=== PATIENT | female | born 1930 | race Caucasian/White ===

== ENCOUNTER 2018-07-01 17:05 | Inpatient (IN) | payer MEDICARE, OTHER ==
[~2018-07-01] VITALS: Ht 152.4 cm; Wt 73.5 kg
[~2018-07-01 17:05] MED LIST: AMLO10TA4 PO; ATEN-42 PO; ATOR20TA65 PO; INSU3INS6 SUBCUT; LISI2.5T47 PO
[2018-07-01] MEDS ORDERED: ONDANSETRON 4MG ODT PO STA (18:35)
[2018-07-01 19:16] LABS: BASOPHILS % 1.1 % (0.0-2.0); CHLORIDE 117 mEq/L (98-107); EOSINOPHILS % 5.8 % (0.0-5.0); HEMATOCRIT. 29.3 % (36.0-48.0); HEMOGLOBIN. 9.8 g/dL (12.0-16.0); LYMPHOCYTES % 23.9 % (20.0-50.0); MEAN CORPUSCULAR HEMOGLOBIN 30.7 pg (28.0-32.0); MEAN CORPUSCULAR VOLUME 92.1 fL (81.0-99.0); MEAN PLATELET VOLUME 7.7 fl (7.4-10.4); MONOCYTES % 6.8 % (2.0-8.0); NEUTROPHILS % 62.4 % (40.0-76.0); PLATELET 150 x1000/uL (130-400); RED BLOOD CELL COUNT 3.18 mill/uL (4.2-5.4); RED CELL DISTRIBUTION WIDTH 15.3 % (11.6-14.6)
[2018-07-01] MEDS ORDERED: INSULIN REGULAR (HUMULIN R) 300UNITS/3ML IV ONE (20:00)
[2018-07-01] MEDS ORDERED: DEXTROSE 50% WATER 50ML SYRINGE IV ONE (20:00)
[2018-07-01] MEDS ORDERED: ALBUTEROL (0.083%) 2.5MG/3ML NEB HHN ONE (20:00)
[2018-07-01] MEDS ORDERED: SODIUM BICARBONATE 8.4% 1 MEQ/ML 50ML SYR IV ONE (20:00)
[2018-07-01] MEDS ORDERED: CALCIUM GLUCONATE 1,000 MG in DEXT 5% WATER 100 ML IV ONE (20:00)
[2018-07-02] VITALS (16 sets, daily range): BP systolic 134–195; BP diastolic 55–80
[2018-07-02] MEDS ORDERED: LOSA25TA26 MT (00:24)
[2018-07-02] MEDS ORDERED: TERA5CAP4 MT (00:24)
[2018-07-02] MEDS ORDERED: APIX5TAB MT (00:24)
[2018-07-02] MEDS ORDERED: DEXTROSE 50% WATER 50ML SYRINGE IV PRN (01:15)
[2018-07-02] MEDS ORDERED: SODIUM POLYSTYRENE SULFONATE 15 G/60 ML BOT PO NR ×2 (02:00→11:30)
[2018-07-02] MEDS ORDERED: DEXT 5%/0.45% NACL 1000ML 1,000 ML IV SCH (02:00)
[2018-07-02] MEDS ORDERED: AMLODIPINE 5MG TABLET PO SCH (02:00)
[2018-07-02] MEDS ORDERED: APIXABAN 5 MG TABLET PO SCH (02:00)
[2018-07-02] MEDS: SODIUM BICARBONATE 50 MEQ in DEXT 5%/0.45% NACL 1000ML 1,000 ML IV SCH ×3 (02:21→20:11)
[2018-07-02] MEDS: INSULIN LISPRO 100 UNITS/ML SUBCUT SCH ×4 (08:00→21:00)
[2018-07-02] MEDS: BLOOD SUGAR DIAGNOSTIC STRIP TEST SCH ×4 (08:00→21:00)
[2018-07-02] MEDS ORDERED: SODIUM POLYSTYRENE SULFONATE 15 G/60 ML BOT PO ONE (10:00)
[2018-07-02] MEDS: CITRIC ACID/SODIUM CITRATE SOLN 30ML UDC PO SCH ×3 (11:19→16:44)
[2018-07-02] MEDS ORDERED: CLONIDINE 0.1MG TABLET PO NR (11:30)
[2018-07-02] MEDS: AMLODIPINE 10MG TABLET PO SCH (13:18)
[2018-07-02] MEDS: ATORVASTATIN CALCIUM 20MG TABLET PO SCH (13:19)
[2018-07-02] MEDS ORDERED: DEXTROSE 50% WATER 50ML SYRINGE IV NR (14:45)
[2018-07-02] MEDS ORDERED: SODIUM BICARBONATE 8.4% 1 MEQ/ML 50ML SYR IV SCH (15:00)
[2018-07-02] MEDS ORDERED: INSULIN REGULAR (HUMULIN R) UD 100 UNITS/ML SYR IV SCH (16:00)
[2018-07-02 19:37] LABS: HEMOGLOBIN 9.3 g/dL (12.0-16.0); MEAN CORPUSCULAR HEMOGLOBIN 30.5 pg (28.0-32.0); MEAN CORPUSCULAR VOLUME 91.3 fL (81.0-99.0); PLATELET 158 x1000/uL (130-400); RED BLOOD CELL COUNT 3.06 mill/uL (4.2-5.4)
[2018-07-02 19:45] LABS: INR 1.1; PROTHROMBIN TIME 11.4 sec (9.6-11.0)
[2018-07-03] VITALS (10 sets, daily range): BP systolic 134–193; BP diastolic 60–88
[2018-07-03] MEDS: CLONIDINE 0.1MG TABLET PO PRN ×3 (06:16→15:25)
[2018-07-03 06:52] LABS: EOSINOPHILS % 9.7 % (0.0-5.0); HEMATOCRIT. 27.2 % (36.0-48.0); HEMOGLOBIN. 9.1 g/dL (12.0-16.0); LYMPHOCYTES % 24.7 % (20.0-50.0); MEAN CORPUSCULAR HEMOGLOBIN 30.5 pg (28.0-32.0); MEAN CORPUSCULAR VOLUME 91.5 fL (81.0-99.0); MONOCYTES % 7.8 % (2.0-8.0); NEUTROPHILS % 56.8 % (40.0-76.0); PLATELET 139 x1000/uL (130-400); RED BLOOD CELL COUNT 2.98 mill/uL (4.2-5.4)
[2018-07-03 06:53] LABS: CLARITY URINE CLEAR (CLEAR); COLOR URINE YELLOW (YELLOW); KETONES URINE NEGATIVE (NEGATIVE); LEUKOCYTE ESTERASE URINE NEGATIVE (NEGATIVE); NITRITE URINE NEGATIVE (NEGATIVE); OCCULT BLOOD URINE TRACE (NEGATIVE); PROTEIN URINE 3+ (NEGATIVE); SPECIFIC GRAVITY URINE 1.013 (1.005-1.030); UROBILINOGEN URINE 0.2 E.U./dL (0.2-1.0)
[2018-07-03] MEDS: INSULIN LISPRO 100 UNITS/ML SUBCUT SCH ×4 (07:30→21:00)
[2018-07-03] MEDS: BLOOD SUGAR DIAGNOSTIC STRIP TEST SCH ×4 (07:30→21:16)
[2018-07-03 08:18] LABS: PHOSPHORUS 4.2 mg/dL (2.5-4.9)
[2018-07-03 08:22] LABS: T4 FREE 1.05 ng/dL (0.76-1.46)
[2018-07-03] MEDS: CITRIC ACID/SODIUM CITRATE SOLN 30ML UDC PO SCH ×3 (08:41→17:00)
[2018-07-03] MEDS: AMLODIPINE 10MG TABLET PO SCH (08:41)
[2018-07-03] MEDS: ATORVASTATIN CALCIUM 20MG TABLET PO SCH (08:41)
[2018-07-03] MEDS: SODIUM BICARBONATE 50 MEQ in DEXT 5%/0.45% NACL 1000ML 1,000 ML IV SCH (10:33)
[2018-07-03] MEDS: NITROGLYCERIN OINT 1GM/INCH UDPKT TD SCH ×3 (12:38→21:15)
[2018-07-03] MEDS ORDERED: HYDRALAZINE 20MG/ML VIAL IV PRN (17:30)
[2018-07-03] MEDS ORDERED: ATORVASTATIN CALCIUM 20MG TABLET PO SCH (21:00)
[2018-07-03] MEDS: HYDRALAZINE HCL 50MG TABLET PO SCH (22:00)
[2018-07-04] VITALS (9 sets, daily range): BP systolic 148–207; BP diastolic 57–84
[2018-07-04] MEDS: HYDRALAZINE HCL 50MG TABLET PO SCH (05:35)
[2018-07-04] MEDS ORDERED: CLONIDINE 0.1MG TABLET PO PRN (05:45)
[2018-07-04] MEDS: SODIUM BICARBONATE 50 MEQ in DEXT 5%/0.45% NACL 1000ML 1,000 ML IV SCH (05:52)
[2018-07-04] MEDS: NITROGLYCERIN OINT 1GM/INCH UDPKT TD SCH ×2 (05:53→13:31)
[2018-07-04 07:12] LABS: BASOPHILS % 1.4 % (0.0-2.0); EOSINOPHILS % 10.9 % (0.0-5.0); HEMATOCRIT. 26.4 % (36.0-48.0); HEMOGLOBIN. 9.1 g/dL (12.0-16.0); LYMPHOCYTES % 27.8 % (20.0-50.0); MEAN CORPUSCULAR HEMOGLOBIN 31.1 pg (28.0-32.0); MEAN CORPUSCULAR VOLUME 90.3 fL (81.0-99.0); MEAN PLATELET VOLUME 8.1 fl (7.4-10.4); MONOCYTES % 7.2 % (2.0-8.0); NEUTROPHILS % 52.7 % (40.0-76.0); PLATELET 146 x1000/uL (130-400); RED BLOOD CELL COUNT 2.92 mill/uL (4.2-5.4); RED CELL DISTRIBUTION WIDTH 14.6 % (11.6-14.6)
[2018-07-04] MEDS: INSULIN LISPRO 100 UNITS/ML SUBCUT SCH ×2 (07:30→12:30)
[2018-07-04] MEDS: BLOOD SUGAR DIAGNOSTIC STRIP TEST SCH ×2 (07:39→12:58)
[2018-07-04] MEDS: AMLODIPINE 10MG TABLET PO SCH (08:20)
[2018-07-04] MEDS: CITRIC ACID/SODIUM CITRATE SOLN 30ML UDC PO SCH ×2 (08:26→14:15)
== END 2018-07-04 18:30 | disposition home or self-care (01) | DRG 682 ==
LOC: ER 17:05 → 5EST 21:13 → EDBEDREQSVC 21:16 → EDBEDREQTM 21:16 → EDBEDREQ 21:16 → ENRESERV 22:16
PROVIDERS: ADMIT Internal Medicine; ATTEND Internal Medicine
DX: N17.9 Acute kidney failure, unspecified (principal); I50.33 Acute on chronic diastolic (congestive) heart failure; E87.2 Acidosis; J84.9 Interstitial pulmonary disease, unspecified; I13.0 Hypertensive heart and chronic kidney disease with heart failure and stage 1 through stage 4 chronic kidney disease, or unspecified chronic kidney disease; E87.5 Hyperkalemia; D63.1 Anemia in chronic kidney disease; E78.5 Hyperlipidemia, unspecified; I12.9 Hypertensive chronic kidney disease with stage 1 through stage 4 chronic kidney disease, or unspecified chronic kidney disease; R55 Syncope and collapse; N18.9 Chronic kidney disease, unspecified; E11.22 Type 2 diabetes mellitus with diabetic chronic kidney disease; D69.6 Thrombocytopenia, unspecified; E11.65 Type 2 diabetes mellitus with hyperglycemia; I48.0 Paroxysmal atrial fibrillation; R00.1 Bradycardia, unspecified; I25.10 Atherosclerotic heart disease of native coronary artery without angina pectoris; Z83.3 Family history of diabetes mellitus; Z91.81 History of falling; Z87.01 Personal history of pneumonia (recurrent); Z79.4 Long term (current) use of insulin; Z82.49 Family history of ischemic heart disease and other diseases of the circulatory system; Z79.01 Long term (current) use of anticoagulants; Z88.0 Allergy status to penicillin; Z88.5 Allergy status to narcotic agent; Z79.899 Other long term (current) drug therapy
CPT/HCPCS: 36415; 71045; 76770; 80048; 80061; 82962; 83036; 84100; 84132; 84439; 84443; 84484; 85027; 93005; 93306; 93880; 93970; 94640; 97161; 99291; J0610; J1815; J3490; J7060; J7611; Q0162

== ENCOUNTER 2019-01-02 19:27 | Inpatient (IN) | payer MEDICARE ==
[~2019-01-02] VITALS: Ht 149.9 cm; Wt 64.4 kg
[~2019-01-02 19:27] MED LIST changes: -ATEN-42 PO; -LISI2.5T47 PO; +TERA5CAP4 MT
[2019-01-02] MEDS ORDERED: ACETAMINOPHEN 325MG TABLET PO ONE (22:15)
[2019-01-02 22:22] LABS: BASOPHILS % 0.8 % (0.0-2.0); EOSINOPHILS % 1.1 % (0.0-5.0); HEMATOCRIT. 23.7 % (36.0-48.0); HEMOGLOBIN. 7.9 g/dL (12.0-16.0); LYMPHOCYTES % 9.6 % (20.0-50.0); MEAN CORPUSCULAR HEMOGLOBIN 28.4 pg (28.0-32.0); MEAN CORPUSCULAR VOLUME 85.2 fL (81.0-99.0); MEAN PLATELET VOLUME 7.9 fl (7.4-10.4); MONOCYTES % 7.1 % (2.0-8.0); NEUTROPHILS % 81.4 % (40.0-76.0); PLATELET 158 x1000/uL (130-400); RED BLOOD CELL COUNT 2.78 mill/uL (4.2-5.4); RED CELL DISTRIBUTION WIDTH 16.2 % (11.6-14.6)
[2019-01-02 22:27] LABS: CHLORIDE 110 mEq/L (98-107)
[2019-01-02] MEDS ORDERED: DILTIAZEM HCL 60MG TABLET PO ONE (23:45)
[2019-01-02] MEDS ORDERED: ASPIRIN 325MG EC TABLET PO ONE (23:45)
[2019-01-03 05:35] VITALS: BP 177/73
[2019-01-03] MEDS ORDERED: IMDUR PO (06:44)
[2019-01-03] MEDS ORDERED: FURO20TA4 PO (06:44)
[2019-01-03] MEDS ORDERED: ISOS10TA53 PO (06:44)
[2019-01-03] MEDS ORDERED: CLON0.2T PO (06:44)
[2019-01-03 08:00] VITALS: BP 150/54
[2019-01-03] MEDS ORDERED: DEXTROSE 50% WATER 50ML SYRINGE IV PRN (08:00)
[2019-01-03] MEDS ORDERED: IMDUR 60 MG PO SCH (09:00)
[2019-01-03] MEDS ORDERED: CLONIDINE 0.2MG TABLET PO SCH (10:00)
[2019-01-03] MEDS ORDERED: AMLODIPINE 10MG TABLET PO SCH (10:00)
[2019-01-03] MEDS: FUROSEMIDE 40MG/4ML VIAL IVP SCH (10:14)
[2019-01-03] MEDS: ISOSORBIDE MONONITRATE 60MG TABLET SR 24HR PO SCH (10:20)
[2019-01-03 12:00] VITALS: BP 124/53
[2019-01-03] MEDS: BLOOD SUGAR DIAGNOSTIC STRIP TEST SCH ×3 (12:20→20:47)
[2019-01-03] MEDS: IPRATROPIUM/ALBUTEROL 0.5-3(2.5)MG/3ML NEB HHN SCH ×3 (12:45→20:00)
[2019-01-03] MEDS: INSULIN LISPRO 100 UNITS/ML SUBCUT SCH ×3 (12:50→20:47)
[2019-01-03] MEDS: DILTIAZEM HCL 60MG TABLET PO SCH ×2 (15:15→22:00)
[2019-01-03 16:00] VITALS: BP_SYST 157; BP_DIAS 59; BP_DIAS 75
[2019-01-03] MEDS ORDERED: [UNRECOGNIZED DRUG - OTHER] SUBCUT SCH (17:00)
[2019-01-03] MEDS ORDERED: INSULIN GLARGINE HUM REC ANLOG 5 UNIT SUBCUT SCH (17:00)
[2019-01-03 17:24] LABS: CHLORIDE 111 mEq/L (98-107)
[2019-01-03 17:37] LABS: BASOPHILS % 0.9 % (0.0-2.0); EOSINOPHILS % 0.9 % (0.0-5.0); HEMATOCRIT. 24.5 % (36.0-48.0); HEMOGLOBIN. 7.9 g/dL (12.0-16.0); LYMPHOCYTES % 12.1 % (20.0-50.0); MEAN CORPUSCULAR HEMOGLOBIN 28.2 pg (28.0-32.0); MEAN CORPUSCULAR VOLUME 87.3 fL (81.0-99.0); MEAN PLATELET VOLUME 8.4 fl (7.4-10.4); MONOCYTES % 8.1 % (2.0-8.0); PLATELET 151 x1000/uL (130-400); RED BLOOD CELL COUNT 2.81 mill/uL (4.2-5.4); RED CELL DISTRIBUTION WIDTH 16.5 % (11.6-14.6)
[2019-01-03] MEDS: ENOXAPARIN 30MG/0.3ML SYR SUBCUT SCH (18:30)
[2019-01-03] MEDS: ONDANSETRON HCL 4MG/2ML INJ IV PRN (19:24)
[2019-01-03 20:00] VITALS: BP 125/68
[2019-01-03] MEDS: ATORVASTATIN CALCIUM 20MG TABLET PO SCH (21:00)
[2019-01-03] MEDS: INSULIN GLARGINE UD 100 UNITS/ML SYR SUBCUT SCH (22:00)
[2019-01-04] VITALS (27 sets, daily range): BP systolic 118–250; BP diastolic 45–134
[2019-01-04] MEDS: ONDANSETRON HCL 4MG/2ML INJ IV PRN ×2 (01:28→07:06)
[2019-01-04] MEDS: DEXT 5%/0.45% NACL KCL 20MEQ/L 1,000 ML IV SCH ×2 (01:48→09:48)
[2019-01-04] MEDS: IPRATROPIUM/ALBUTEROL 0.5-3(2.5)MG/3ML NEB HHN SCH ×5 (04:00→16:00)
[2019-01-04] MEDS: DILTIAZEM HCL 60MG TABLET PO SCH (06:00)
[2019-01-04] MEDS: BLOOD SUGAR DIAGNOSTIC STRIP TEST SCH ×4 (07:06→21:35)
[2019-01-04] MEDS: INSULIN LISPRO 100 UNITS/ML SUBCUT SCH ×4 (07:50→21:00)
[2019-01-04] MEDS: ISOSORBIDE MONONITRATE 60MG TABLET SR 24HR PO SCH (09:00)
[2019-01-04] MEDS: FUROSEMIDE 40MG/4ML VIAL IVP SCH (09:48)
[2019-01-04] MEDS: ENOXAPARIN 30MG/0.3ML SYR SUBCUT SCH (09:49)
[2019-01-04] MEDS: CITRIC ACID/SODIUM CITRATE SOLN 15ML UDC PO SCH ×2 (13:00→17:00)
[2019-01-04] MEDS ORDERED: EPINEPHRINE 4 MG in DEXT 5% WATER 246 ML IV ONE (15:45)
[2019-01-04] MEDS ORDERED: VANCOMYCIN 1G PREMIX 200ML IV ONE (15:45)
[2019-01-04] MEDS ORDERED: NOREPINEPHRINE 4 MG in DEXT 5% WATER 246 ML IV ONE (15:45)
[2019-01-04] MEDS ORDERED: NORMAL SALINE 0.9% 10 ML SYR ONE (16:07)
[2019-01-04] MEDS ORDERED: BACITRACIN 15GM TUBE TOP ONE (16:07)
[2019-01-04] MEDS ORDERED: THROMBIN (BOVINE) 5000 UNITS/VIAL TOP ONE (16:08)
[2019-01-04] MEDS ORDERED: SODIUM CHLORIDE 0.9% 2,000 ML ONE (16:08)
[2019-01-04] MEDS ORDERED: BACITRACIN 50,000 UNITS/VIAL ONE (16:08)
[2019-01-04] MEDS ORDERED: BUPIVACAINE HCL/EPINEPHRINE 0.5%/0.0005 30ML ONE (16:08)
[2019-01-04] MEDS ORDERED: ALBUMIN HUMAN 25GM/100ML (25%) IV ONE (16:24)
[2019-01-04] MEDS ORDERED: SUCCINYLCHOLINE CHLORIDE 200MG/10ML IV ONE (16:27)
[2019-01-04] MEDS ORDERED: EPHEDRINE SULFATE 50MG/ML VIAL ONE (16:27)
[2019-01-04] MEDS ORDERED: CALCIUM CHLORIDE 1GM/10ML SYR IV ONE (16:28)
[2019-01-04] MEDS ORDERED: ETOMIDATE 2MG/ML 10ML VIAL IV ONE (16:28)
[2019-01-04 16:48] LABS: BASOPHILS % 0.9 % (0.0-2.0); EOSINOPHILS % 0.8 % (0.0-5.0); HEMATOCRIT. 23.2 % (36.0-48.0); HEMOGLOBIN. 7.6 g/dL (12.0-16.0); LYMPHOCYTES % 8.7 % (20.0-50.0); MEAN CORPUSCULAR HEMOGLOBIN 28.5 pg (28.0-32.0); MEAN CORPUSCULAR VOLUME 87.2 fL (81.0-99.0); MEAN PLATELET VOLUME 8.3 fl (7.4-10.4); MONOCYTES % 8.8 % (2.0-8.0); NEUTROPHILS % 80.8 % (40.0-76.0); PLATELET 155 x1000/uL (130-400); RED BLOOD CELL COUNT 2.66 mill/uL (4.2-5.4)
[2019-01-04 16:52] LABS: INR 1.2; PROTHROMBIN TIME 12.4 sec (9.6-11.0)
[2019-01-04 16:54] LABS: CHLORIDE 111 mEq/L (98-107)
[2019-01-04] MEDS ORDERED: SKIN ADHESIVE 0.7 GM EA TOP ONE (18:05)
[2019-01-04] MEDS ORDERED: SODIUM CHLORIDE 0.9% 500 ML IV PRN (18:15)
[2019-01-04] MEDS ORDERED: ONDANSETRON HCL 4MG/2ML INJ IV PRN (18:15)
[2019-01-04] MEDS ORDERED: FENTANYL CITRATE/PF 50MCG/ML 2ML VIAL ONE (18:18)
[2019-01-04] MEDS ORDERED: DEXT 5%/0.45% NACL 1000ML 1,000 ML IV SCH (18:30)
[2019-01-04] MEDS ORDERED: IPRATROPIUM/ALBUTEROL 0.5-3(2.5)MG/3ML NEB HHN PRN (18:30)
[2019-01-04 19:01] LABS: BG BASE EXCESS -13.6 mmol/L (-2.0-2.0); BG CARBOXYHEMOGLOBIN 0.6 % (0.5-1.5); BG DEOXYHEMOGLOBIN 6.1 % (0.0-5.0); BG FRACTION INSPIRED OXYGEN 60; BG HCO3 ACT 14.1 mmol/L (22.0-26.0); BG METHEMOGLOBIN 0.1 % (0.0-1.5); BG OXYGEN SATURATION 93.9 % (92.0-98.5); BG OXYHEMOGLOBIN 93.2 % (94.0-97.0); BG PCO2 40.3 mmHg (35.0-45.0); BG PH 7.161 (7.350-7.450); BG PO2 86.5 mmHg (75.0-100.0); BG SAMPLE SITE A-LINE; BG TOTAL HEMOGLOBIN 8.2 g/dL (12.0-18.0); BG VENT MODE MASK - SIMPLE
[2019-01-04] MEDS ORDERED: SODIUM BICARBONATE 8.4% 1 MEQ/ML 50ML SYR IV NR (19:15)
[2019-01-04] MEDS: HYDROMORPHONE HCL/PF 2MG/ML CPJ IV PRN ×2 (19:28→21:42)
[2019-01-04] MEDS: DEXT 5%/0.45% NACL 1000ML 1,000 ML IV SCH (20:07)
[2019-01-04] MEDS: ATORVASTATIN CALCIUM 20MG TABLET PO SCH (21:00)
[2019-01-04] MEDS: METOPROLOL TARTRATE 5MG/5ML VIAL IV PRN (22:49)
[2019-01-04] MEDS: INSULIN GLARGINE UD 100 UNITS/ML SYR SUBCUT SCH (23:00)
[2019-01-04 23:32] LABS: CLARITY URINE CLOUDY (CLEAR); COLOR URINE YELLOW (YELLOW); KETONES URINE NEGATIVE (NEGATIVE); LEUKOCYTE ESTERASE URINE NEGATIVE (NEGATIVE); NITRITE URINE NEGATIVE (NEGATIVE); OCCULT BLOOD URINE 2+ (NEGATIVE); PROTEIN URINE 3+ (NEGATIVE); SPECIFIC GRAVITY URINE 1.013 (1.005-1.030); UROBILINOGEN URINE 0.2 E.U./dL (0.2-1.0)
[2019-01-05] VITALS (109 sets, daily range): BP systolic 0–260; BP diastolic 0–117
[2019-01-05] MEDS ORDERED: IPRATROPIUM/ALBUTEROL 0.5-3(2.5)MG/3ML NEB HHN SCH
[2019-01-05] MEDS: IPRATROPIUM/ALBUTEROL 0.5-3(2.5)MG/3ML NEB HHN SCH ×6 (00:10→20:14)
[2019-01-05] MEDS: HYDROMORPHONE HCL/PF 2MG/ML CPJ IV PRN (00:41)
[2019-01-05] MEDS: SODIUM POLYSTYRENE SULFONATE 15 G/60 ML BOT PO SCH ×2 (01:00→01:06)
[2019-01-05] MEDS ORDERED: SODIUM POLYSTYRENE SULFONATE 15 G/60 ML BOT PR SCH (03:00)
[2019-01-05 05:28] LABS: HEMOGLOBIN. 9.6 g/dL (12.0-16.0); MEAN CORPUSCULAR HEMOGLOBIN 29.1 pg (28.0-32.0); MEAN CORPUSCULAR VOLUME 88.2 fL (81.0-99.0); MEAN PLATELET VOLUME 7.9 fl (7.4-10.4); PLATELET 200 x1000/uL (130-400); RED BLOOD CELL COUNT 3.29 mill/uL (4.2-5.4); RED CELL DISTRIBUTION WIDTH 16.3 % (11.6-14.6)
[2019-01-05 05:48] LABS: PHOSPHORUS 6.9 mg/dL (2.5-4.9)
[2019-01-05] MEDS ORDERED: DEXTROSE 50% WATER 50ML SYRINGE IV SCH (08:00)
[2019-01-05] MEDS ORDERED: SODIUM BICARBONATE 8.4% 1 MEQ/ML 50ML SYR IV SCH (08:00)
[2019-01-05] MEDS ORDERED: INSULIN REGULAR (HUMULIN R) UD 100 UNITS/ML SYR IV SCH (08:00)
[2019-01-05] MEDS: BLOOD SUGAR DIAGNOSTIC STRIP TEST SCH ×4 (08:03→20:42)
[2019-01-05] MEDS: INSULIN LISPRO 100 UNITS/ML SUBCUT SCH ×4 (08:04→20:42)
[2019-01-05 08:05] LABS: PLATELET ESTIMATE NORMAL
[2019-01-05] MEDS: CITRIC ACID/SODIUM CITRATE SOLN 15ML UDC PO SCH ×3 (08:17→18:04)
[2019-01-05] MEDS: DOCUSATE SODIUM 100MG CAPSULE PO SCH ×3 (08:17→18:04)
[2019-01-05] MEDS: AMLODIPINE 5MG TABLET PO SCH ×2 (08:18→21:35)
[2019-01-05] MEDS: METOPROLOL TARTRATE 5MG/5ML VIAL IV PRN (08:38)
[2019-01-05] MEDS: FUROSEMIDE 40MG/4ML VIAL IVP SCH (09:00)
[2019-01-05 09:07] LABS: BG BASE EXCESS -6.1 mmol/L (-2.0-2.0); BG CARBOXYHEMOGLOBIN 0.5 % (0.5-1.5); BG DEOXYHEMOGLOBIN 4.5 % (0.0-5.0); BG FRACTION INSPIRED OXYGEN 50; BG HCO3 ACT 21.5 mmol/L (22.0-26.0); BG METHEMOGLOBIN 0.4 % (0.0-1.5); BG OXYGEN SATURATION 95.5 % (92.0-98.5); BG OXYHEMOGLOBIN 94.6 % (94.0-97.0); BG PCO2 53.6 mmHg (35.0-45.0); BG PH 7.222 (7.350-7.450); BG PO2 84.2 mmHg (75.0-100.0); BG SAMPLE SITE A-LINE; BG TOTAL HEMOGLOBIN 9.1 g/dL (12.0-18.0); BG VENT MODE MASK - VENTI
[2019-01-05 10:33] LABS: BG BASE EXCESS -9.3 mmol/L (-2.0-2.0); BG CARBOXYHEMOGLOBIN 0.2 % (0.5-1.5); BG DEOXYHEMOGLOBIN 4.2 % (0.0-5.0); BG FRACTION INSPIRED OXYGEN 50; BG HCO3 ACT 18.1 mmol/L (22.0-26.0); BG METHEMOGLOBIN 0.3 % (0.0-1.5); BG OXYGEN SATURATION 95.8 % (92.0-98.5); BG OXYHEMOGLOBIN 95.3 % (94.0-97.0); BG PCO2 46.5 mmHg (35.0-45.0); BG PH 7.209 (7.350-7.450); BG PO2 88.5 mmHg (75.0-100.0); BG SAMPLE SITE A-LINE; BG TOTAL HEMOGLOBIN 9.8 g/dL (12.0-18.0); BG VENT MODE MASK - VENTI
[2019-01-05] MEDS ORDERED: FUROSEMIDE 100MG/10ML VIAL IVP NR (12:00)
[2019-01-05] MEDS: DEXT 5%/0.45% NACL 1000ML 1,000 ML IV SCH (18:05)
[2019-01-05] MEDS ORDERED: ACETAMINOPHEN 650MG/20.3ML UDC PO PRN (21:00)
[2019-01-05] MEDS: ATORVASTATIN CALCIUM 20MG TABLET PO SCH (21:35)
[2019-01-05] MEDS ORDERED: ACETAMINOPHEN 325MG TABLET PO PRN (21:45)
[2019-01-05] MEDS: INSULIN GLARGINE UD 100 UNITS/ML SYR SUBCUT SCH (22:00)
[2019-01-06] VITALS (80 sets, daily range): BP systolic 82–186; BP diastolic 32–90
[2019-01-06] MEDS: IPRATROPIUM/ALBUTEROL 0.5-3(2.5)MG/3ML NEB HHN SCH ×6 (00:25→20:24)
[2019-01-06 07:16] LABS: BASOPHILS % 0.7 % (0.0-2.0); EOSINOPHILS % 0.8 % (0.0-5.0); HEMATOCRIT. 26.2 % (36.0-48.0); HEMOGLOBIN. 8.7 g/dL (12.0-16.0); LYMPHOCYTES % 9.9 % (20.0-50.0); MEAN CORPUSCULAR HEMOGLOBIN 28.3 pg (28.0-32.0); MEAN CORPUSCULAR VOLUME 85.3 fL (81.0-99.0); MEAN PLATELET VOLUME 8.4 fl (7.4-10.4); MONOCYTES % 8.5 % (2.0-8.0); NEUTROPHILS % 80.1 % (40.0-76.0); PLATELET 154 x1000/uL (130-400); RED BLOOD CELL COUNT 3.08 mill/uL (4.2-5.4); RED CELL DISTRIBUTION WIDTH 15.9 % (11.6-14.6)
[2019-01-06] MEDS: BLOOD SUGAR DIAGNOSTIC STRIP TEST SCH ×4 (07:50→20:09)
[2019-01-06] MEDS: INSULIN LISPRO 100 UNITS/ML SUBCUT SCH ×4 (08:20→20:10)
[2019-01-06 08:29] LABS: BG BASE EXCESS -7.9 mmol/L (-2.0-2.0); BG CARBOXYHEMOGLOBIN 1.1 % (0.5-1.5); BG DEOXYHEMOGLOBIN 6.9 % (0.0-5.0); BG FRACTION INSPIRED OXYGEN 40; BG HCO3 ACT 18.1 mmol/L (22.0-26.0); BG METHEMOGLOBIN 0.1 % (0.0-1.5); BG OXYHEMOGLOBIN 91.9 % (94.0-97.0); BG PCO2 38.6 mmHg (35.0-45.0); BG PH 7.288 (7.350-7.450); BG PO2 70.3 mmHg (75.0-100.0); BG SAMPLE SITE RIGHT RADIAL; BG TOTAL HEMOGLOBIN 12.4 g/dL (12.0-18.0); BG VENT MODE NASAL CANNULA
[2019-01-06] MEDS: DOCUSATE SODIUM 100MG CAPSULE PO SCH ×2 (08:51→17:00)
[2019-01-06] MEDS: FUROSEMIDE 100MG/10ML VIAL IVP SCH (08:51)
[2019-01-06] MEDS: CITRIC ACID/SODIUM CITRATE SOLN 15ML UDC PO SCH ×3 (08:51→17:00)
[2019-01-06] MEDS: AMLODIPINE 5MG TABLET PO SCH ×2 (08:51→20:09)
[2019-01-06 10:35] LABS: PHOSPHORUS 5.6 mg/dL (2.5-4.9)
[2019-01-06] MEDS ORDERED: BISACODYL 10MG SUPP PR ONE (11:45)
[2019-01-06] MEDS ORDERED: MAGNESIUM 2 G PREMIX 50 ML IV NR (16:00)
[2019-01-06] MEDS: ATORVASTATIN CALCIUM 20MG TABLET PO SCH (20:09)
[2019-01-06] MEDS: INSULIN GLARGINE UD 100 UNITS/ML SYR SUBCUT SCH (22:00)
[2019-01-06] MEDS: METOPROLOL TARTRATE 5MG/5ML VIAL IV PRN (22:10)
[2019-01-07] VITALS (28 sets, daily range): BP systolic 144–180; BP diastolic 59–107
[2019-01-07] MEDS: IPRATROPIUM/ALBUTEROL 0.5-3(2.5)MG/3ML NEB HHN SCH ×6 (00:45→20:00)
[2019-01-07] MEDS: METOPROLOL TARTRATE 5MG/5ML VIAL IV PRN (00:49)
[2019-01-07 06:05] LABS: HEMOGLOBIN. 9.3 g/dL (12.0-16.0); MEAN CORPUSCULAR HEMOGLOBIN 28.3 pg (28.0-32.0); MEAN CORPUSCULAR VOLUME 85.5 fL (81.0-99.0); MEAN PLATELET VOLUME 7.8 fl (7.4-10.4); PLATELET 191 x1000/uL (130-400); RED BLOOD CELL COUNT 3.27 mill/uL (4.2-5.4); RED CELL DISTRIBUTION WIDTH 15.8 % (11.6-14.6)
[2019-01-07 06:23] LABS: PHOSPHORUS 5.6 mg/dL (2.5-4.9)
[2019-01-07 07:41] LABS: PLATELET ESTIMATE NORMAL
[2019-01-07] MEDS: BLOOD SUGAR DIAGNOSTIC STRIP TEST SCH ×4 (07:50→21:00)
[2019-01-07] MEDS: INSULIN LISPRO 100 UNITS/ML SUBCUT SCH ×3 (08:20→21:00)
[2019-01-07] MEDS: DOCUSATE SODIUM 100MG CAPSULE PO SCH ×2 (09:34→17:00)
[2019-01-07] MEDS: FOLIC ACID/VITAMIN B COMP W-C TABLET PO SCH (09:34)
[2019-01-07] MEDS: CITRIC ACID/SODIUM CITRATE SOLN 15ML UDC PO SCH ×5 (09:34→17:39)
[2019-01-07] MEDS: CALCIUM ACETATE 667MG CAPSULE PO SCH ×2 (09:35→17:33)
[2019-01-07] MEDS: AMLODIPINE 5MG TABLET PO SCH ×2 (09:35→21:11)
[2019-01-07] MEDS: FUROSEMIDE 100MG/10ML VIAL IVP SCH (09:38)
[2019-01-07] MEDS ORDERED: MORPHINE SULFATE 2 MG/ML CPJ (NOT FOR IM USE) IV PRN (10:45)
[2019-01-07] MEDS ORDERED: HYDROMORPHONE HCL/PF 2MG/ML CPJ IV PRN ×2 (10:45→23:45)
[2019-01-07] MEDS ORDERED: MORPHINE SULFATE 2 MG/ML CPJ (NOT FOR IM USE) IV SCH (10:45)
[2019-01-07] MEDS: ACETYLCYSTEINE 100MG/ML 10% VIAL 4ML INH SCH (12:04)
[2019-01-07] MEDS: ATORVASTATIN CALCIUM 20MG TABLET PO SCH (21:11)
[2019-01-07] MEDS: INSULIN GLARGINE UD 100 UNITS/ML SYR SUBCUT SCH (21:51)
[2019-01-08] VITALS: BP 175/64
[2019-01-08] MEDS: METOPROLOL TARTRATE 5MG/5ML VIAL IV PRN (00:43)
[2019-01-08] MEDS: IPRATROPIUM/ALBUTEROL 0.5-3(2.5)MG/3ML NEB HHN SCH ×6 (01:10→20:58)
[2019-01-08 04:00] VITALS: BP 139/59
[2019-01-08] MEDS: BLOOD SUGAR DIAGNOSTIC STRIP TEST SCH ×4 (05:33→20:44)
[2019-01-08] MEDS: INSULIN LISPRO 100 UNITS/ML SUBCUT SCH ×4 (05:33→20:44)
[2019-01-08] MEDS: CALCIUM ACETATE 667MG CAPSULE PO SCH ×3 (06:55→17:05)
[2019-01-08 08:00] VITALS: BP 153/59
[2019-01-08 08:28] LABS: BASOPHILS % 0.3 % (0.0-2.0); EOSINOPHILS % 1.5 % (0.0-5.0); HEMATOCRIT. 28.8 % (36.0-48.0); HEMOGLOBIN. 9.4 g/dL (12.0-16.0); LYMPHOCYTES % 7.9 % (20.0-50.0); MEAN CORPUSCULAR HEMOGLOBIN 27.9 pg (28.0-32.0); MEAN CORPUSCULAR VOLUME 85.6 fL (81.0-99.0); MEAN PLATELET VOLUME 7.5 fl (7.4-10.4); MONOCYTES % 6.4 % (2.0-8.0); NEUTROPHILS % 83.9 % (40.0-76.0); PLATELET 202 x1000/uL (130-400); RED BLOOD CELL COUNT 3.37 mill/uL (4.2-5.4); RED CELL DISTRIBUTION WIDTH 15.6 % (11.6-14.6)
[2019-01-08] MEDS: FOLIC ACID/VITAMIN B COMP W-C TABLET PO SCH (08:48)
[2019-01-08] MEDS: FUROSEMIDE 40MG/4ML VIAL IV SCH (08:48)
[2019-01-08] MEDS: AMLODIPINE 5MG TABLET PO SCH ×2 (08:48→20:44)
[2019-01-08] MEDS: DOCUSATE SODIUM 100MG CAPSULE PO SCH ×2 (08:49→17:00)
[2019-01-08] MEDS: CITRIC ACID/SODIUM CITRATE SOLN 15ML UDC PO SCH ×3 (08:49→17:00)
[2019-01-08] MEDS: ACETYLCYSTEINE 100MG/ML 10% VIAL 4ML INH SCH ×2 (09:14→17:08)
[2019-01-08] MEDS ORDERED: HYDROMORPHONE HCL/PF 2MG/ML CPJ IV SCH (10:00)
[2019-01-08 12:00] VITALS: BP 171/76
[2019-01-08 16:28] VITALS: BP 161/58
[2019-01-08] MEDS: METHYLPREDNISOLONE SOD SUCC 40 MG/ML VIAL IV SCH (17:05)
[2019-01-08 17:20] LABS: BG BASE EXCESS -2.7 mmol/L (-2.0-2.0); BG CARBOXYHEMOGLOBIN 0.2 % (0.5-1.5); BG DEOXYHEMOGLOBIN 3.1 % (0.0-5.0); BG FRACTION INSPIRED OXYGEN 100; BG HCO3 ACT 23.1 mmol/L (22.0-26.0); BG OXYGEN SATURATION 96.9 % (92.0-98.5); BG OXYHEMOGLOBIN 96.7 % (94.0-97.0); BG PCO2 44.5 mmHg (35.0-45.0); BG PH 7.333 (7.350-7.450); BG PO2 103.1 mmHg (75.0-100.0); BG SAMPLE SITE RIGHT RADIAL; BG TOTAL HEMOGLOBIN 9.8 g/dL (12.0-18.0); BG VENT MODE MASK - NRB
[2019-01-08 20:00] VITALS: BP 163/60
[2019-01-08] MEDS: ATORVASTATIN CALCIUM 20MG TABLET PO SCH (20:44)
[2019-01-08] MEDS: INSULIN GLARGINE UD 100 UNITS/ML SYR SUBCUT SCH (21:21)
[2019-01-09] VITALS: BP 170/63
[2019-01-09] MEDS: METHYLPREDNISOLONE SOD SUCC 40 MG/ML VIAL IV SCH ×4 (00:06→23:34)
[2019-01-09] MEDS: METOPROLOL TARTRATE 5MG/5ML VIAL IV PRN ×2 (00:22→13:34)
[2019-01-09] MEDS: ACETYLCYSTEINE 100MG/ML 10% VIAL 4ML INH SCH ×3 (00:23→15:55)
[2019-01-09 04:00] VITALS: BP 108/66
[2019-01-09] MEDS: IPRATROPIUM/ALBUTEROL 0.5-3(2.5)MG/3ML NEB HHN SCH ×6 (04:00→20:09)
[2019-01-09 05:57] LABS: HEMATOCRIT 29.9 % (36.0-48.0); HEMOGLOBIN 9.8 g/dL (12.0-16.0); MEAN CORPUSCULAR VOLUME 85.3 fL (81.0-99.0); PLATELET 197 x1000/uL (130-400); RED CELL DISTRIBUTION WIDTH 15.7 % (11.6-14.6)
[2019-01-09] MEDS: BLOOD SUGAR DIAGNOSTIC STRIP TEST SCH ×4 (06:14→20:43)
[2019-01-09 08:00] VITALS: BP 179/75
[2019-01-09] MEDS: CITRIC ACID/SODIUM CITRATE SOLN 15ML UDC PO SCH ×4 (08:06→17:00)
[2019-01-09] MEDS: DOCUSATE SODIUM 100MG CAPSULE PO SCH ×2 (08:06→18:02)
[2019-01-09] MEDS: FOLIC ACID/VITAMIN B COMP W-C TABLET PO SCH (08:06)
[2019-01-09] MEDS: CALCIUM ACETATE 667MG CAPSULE PO SCH ×3 (08:07→18:02)
[2019-01-09] MEDS: FUROSEMIDE 40MG/4ML VIAL IV SCH (08:07)
[2019-01-09] MEDS: AMLODIPINE 5MG TABLET PO SCH ×2 (08:07→21:04)
[2019-01-09] MEDS: INSULIN LISPRO 100 UNITS/ML SUBCUT SCH ×5 (08:09→21:05)
[2019-01-09] MEDS ORDERED: POTASSIUM CHLORIDE 20MEQ TABLET SR PO ONE (11:00)
[2019-01-09 12:00] VITALS: BP 196/80
[2019-01-09 14:44] LABS: BG BASE EXCESS -2.4 mmol/L (-2.0-2.0); BG CARBOXYHEMOGLOBIN 0.4 % (0.5-1.5); BG DEOXYHEMOGLOBIN 1.8 % (0.0-5.0); BG FRACTION INSPIRED OXYGEN 100; BG HCO3 ACT 23.2 mmol/L (22.0-26.0); BG METHEMOGLOBIN 0.1 % (0.0-1.5); BG OXYGEN SATURATION 98.2 % (92.0-98.5); BG OXYHEMOGLOBIN 97.7 % (94.0-97.0); BG PCO2 43.4 mmHg (35.0-45.0); BG PH 7.346 (7.350-7.450); BG PO2 136.9 mmHg (75.0-100.0); BG SAMPLE SITE LEFT RADIAL; BG TOTAL HEMOGLOBIN 11.9 g/dL (12.0-18.0); BG VENT MODE MASK - NRB
[2019-01-09 16:00] VITALS: BP 178/81
[2019-01-09] MEDS: SORBITOL 70% SOLN 30ML PO PRN (18:01)
[2019-01-09] MEDS: METOCLOPRAMIDE HCL 10MG/2ML VIAL IV SCH ×2 (18:01→23:34)
[2019-01-09] MEDS: CLONIDINE 0.1MG TABLET PO PRN (18:02)
[2019-01-09 20:00] VITALS: BP 140/86
[2019-01-09] MEDS: ATORVASTATIN CALCIUM 20MG TABLET PO SCH (21:04)
[2019-01-09] MEDS: INSULIN GLARGINE UD 100 UNITS/ML SYR SUBCUT SCH (21:05)
[2019-01-10] VITALS: BP 151/87
[2019-01-10 04:00] VITALS: BP 145/73
[2019-01-10] MEDS: IPRATROPIUM/ALBUTEROL 0.5-3(2.5)MG/3ML NEB HHN SCH ×6 (04:00→21:33)
[2019-01-10] MEDS: ACETYLCYSTEINE 100MG/ML 10% VIAL 4ML INH SCH ×4 (04:55→21:34)
[2019-01-10] MEDS: METOCLOPRAMIDE HCL 10MG/2ML VIAL IV SCH ×4 (05:36→23:57)
[2019-01-10] MEDS: BLOOD SUGAR DIAGNOSTIC STRIP TEST SCH ×4 (06:32→21:18)
[2019-01-10 07:21] LABS: CHLORIDE 106 mEq/L (98-107)
[2019-01-10] MEDS: INSULIN LISPRO 100 UNITS/ML SUBCUT SCH ×4 (07:40→21:39)
[2019-01-10 08:00] VITALS: BP 108/72
[2019-01-10] MEDS: CITRIC ACID/SODIUM CITRATE SOLN 15ML UDC PO SCH ×3 (09:00→17:00)
[2019-01-10] MEDS: AMLODIPINE 5MG TABLET PO SCH ×2 (09:00→21:38)
[2019-01-10] MEDS: SORBITOL 70% SOLN 30ML PO PRN (10:29)
[2019-01-10] MEDS: CALCIUM ACETATE 667MG CAPSULE PO SCH ×3 (10:29→17:38)
[2019-01-10] MEDS: METHYLPREDNISOLONE SOD SUCC 40 MG/ML VIAL IV SCH ×3 (10:29→23:57)
[2019-01-10] MEDS: FUROSEMIDE 40MG/4ML VIAL IV SCH (10:29)
[2019-01-10] MEDS: DOCUSATE SODIUM 100MG CAPSULE PO SCH ×2 (10:29→17:38)
[2019-01-10] MEDS: FOLIC ACID/VITAMIN B COMP W-C TABLET PO SCH (10:29)
[2019-01-10 12:00] VITALS: BP 145/59
[2019-01-10] MEDS ORDERED: SODIUM BICARBONATE 4% (2.4MEQ) 5ML VIAL IV ONE (13:39)
[2019-01-10 16:00] VITALS: BP 184/88
[2019-01-10 20:00] VITALS: BP 176/64
[2019-01-10] MEDS: ATORVASTATIN CALCIUM 20MG TABLET PO SCH (21:38)
[2019-01-11] VITALS: BP 156/93
[2019-01-11] MEDS: INSULIN GLARGINE UD 100 UNITS/ML SYR SUBCUT SCH ×2 (00:07→22:27)
[2019-01-11] MEDS: ACETYLCYSTEINE 100MG/ML 10% VIAL 4ML INH SCH ×3 (00:33→16:00)
[2019-01-11] MEDS: IPRATROPIUM/ALBUTEROL 0.5-3(2.5)MG/3ML NEB HHN SCH ×6 (01:03→20:56)
[2019-01-11 04:00] VITALS: BP 154/80
[2019-01-11] MEDS: BLOOD SUGAR DIAGNOSTIC STRIP TEST SCH ×4 (06:02→21:02)
[2019-01-11] MEDS: METOCLOPRAMIDE HCL 10MG/2ML VIAL IV SCH ×3 (06:02→17:24)
[2019-01-11] MEDS: INSULIN LISPRO 100 UNITS/ML SUBCUT SCH ×4 (06:14→21:18)
[2019-01-11 07:34] LABS: HEMOGLOBIN 9.8 g/dL (12.0-16.0); MEAN CORPUSCULAR HEMOGLOBIN 27.5 pg (28.0-32.0); MEAN CORPUSCULAR VOLUME 84.6 fL (81.0-99.0); PLATELET 261 x1000/uL (130-400); RED BLOOD CELL COUNT 3.54 mill/uL (4.2-5.4); RED CELL DISTRIBUTION WIDTH 15.6 % (11.6-14.6)
[2019-01-11 08:00] VITALS: BP 181/72
[2019-01-11] MEDS: CITRIC ACID/SODIUM CITRATE SOLN 15ML UDC PO SCH ×3 (09:00→17:00)
[2019-01-11] MEDS: FUROSEMIDE 40MG/4ML VIAL IV SCH (09:06)
[2019-01-11] MEDS: FOLIC ACID/VITAMIN B COMP W-C TABLET PO SCH (09:06)
[2019-01-11] MEDS: METHYLPREDNISOLONE SOD SUCC 40 MG/ML VIAL IV SCH ×2 (09:06→17:25)
[2019-01-11] MEDS: AMLODIPINE 5MG TABLET PO SCH ×2 (09:06→21:00)
[2019-01-11] MEDS: DOCUSATE SODIUM 100MG CAPSULE PO SCH ×2 (09:06→17:24)
[2019-01-11] MEDS: SORBITOL 70% SOLN 30ML PO PRN (09:06)
[2019-01-11] MEDS: CALCIUM ACETATE 667MG CAPSULE PO SCH ×3 (09:06→17:24)
[2019-01-11 11:54] LABS: BG BASE EXCESS 0.9 mmol/L (-2.0-2.0); BG CARBOXYHEMOGLOBIN 0.7 % (0.5-1.5); BG DEOXYHEMOGLOBIN 4.7 % (0.0-5.0); BG FRACTION INSPIRED OXYGEN 60; BG HCO3 ACT 24.7 mmol/L (22.0-26.0); BG METHEMOGLOBIN 0.4 % (0.0-1.5); BG OXYGEN SATURATION 95.2 % (92.0-98.5); BG OXYHEMOGLOBIN 94.2 % (94.0-97.0); BG PCO2 36.3 mmHg (35.0-45.0); BG PO2 76.2 mmHg (75.0-100.0); BG SAMPLE SITE RIGHT RADIAL; BG TOTAL HEMOGLOBIN 10.9 g/dL (12.0-18.0); BG VENT MODE NASAL CANNULA
[2019-01-11 12:00] VITALS: BP 176/76
[2019-01-11] MEDS ORDERED: BISACODYL 10MG SUPP PR PRN (12:30)
[2019-01-11] MEDS: CLONIDINE 0.1MG TABLET PO PRN (13:48)
[2019-01-11 16:00] VITALS: BP 171/82
[2019-01-11] MEDS: METOPROLOL TARTRATE 5MG/5ML VIAL IV PRN (17:25)
[2019-01-11 20:00] VITALS: BP 108/81
[2019-01-11] MEDS: ATORVASTATIN CALCIUM 20MG TABLET PO SCH (21:18)
[2019-01-11] MEDS: LORAZEPAM 0.5MG TABLET PO PRN (22:27)
[2019-01-12] VITALS: BP 112/80
[2019-01-12] MEDS: METOCLOPRAMIDE HCL 10MG/2ML VIAL IV SCH ×4 (00:22→18:20)
[2019-01-12] MEDS: METHYLPREDNISOLONE SOD SUCC 40 MG/ML VIAL IV SCH ×3 (00:24→18:20)
[2019-01-12 04:00] VITALS: BP_SYST 107; BP_SYST 129; BP_DIAS 63; BP_DIAS 80
[2019-01-12] MEDS: IPRATROPIUM/ALBUTEROL 0.5-3(2.5)MG/3ML NEB HHN SCH ×7 (04:00→22:05)
[2019-01-12] MEDS: INSULIN LISPRO 100 UNITS/ML SUBCUT SCH ×5 (06:19→21:40)
[2019-01-12] MEDS: BLOOD SUGAR DIAGNOSTIC STRIP TEST SCH ×4 (06:24→21:30)
[2019-01-12 07:21] LABS: HEMATOCRIT 27.9 % (36.0-48.0); HEMOGLOBIN 9.1 g/dL (12.0-16.0); MEAN CORPUSCULAR HEMOGLOBIN 27.6 pg (28.0-32.0); MEAN CORPUSCULAR VOLUME 84.8 fL (81.0-99.0); PLATELET 233 x1000/uL (130-400); RED BLOOD CELL COUNT 3.29 mill/uL (4.2-5.4); RED CELL DISTRIBUTION WIDTH 15.4 % (11.6-14.6)
[2019-01-12 08:00] VITALS: BP 164/71
[2019-01-12] MEDS: FOLIC ACID/VITAMIN B COMP W-C TABLET PO SCH (08:23)
[2019-01-12] MEDS: DOCUSATE SODIUM 100MG CAPSULE PO SCH ×2 (08:23→18:20)
[2019-01-12] MEDS: CALCIUM ACETATE 667MG CAPSULE PO SCH ×3 (08:23→18:20)
[2019-01-12] MEDS: AMLODIPINE 5MG TABLET PO SCH (08:23)
[2019-01-12] MEDS: FUROSEMIDE 40MG/4ML VIAL IV SCH (08:24)
[2019-01-12] MEDS: ACETYLCYSTEINE 100MG/ML 10% VIAL 4ML INH SCH ×2 (08:50→19:00)
[2019-01-12 12:00] VITALS: BP 198/84
[2019-01-12 16:00] VITALS: BP 164/83
[2019-01-12 20:00] VITALS: BP 169/82
[2019-01-12] MEDS: ATORVASTATIN CALCIUM 20MG TABLET PO SCH (21:34)
[2019-01-12] MEDS: DILTIAZEM HCL 30MG TABLET PO SCH (21:34)
[2019-01-12] MEDS: LORAZEPAM 0.5MG TABLET PO PRN (21:35)
[2019-01-12] MEDS: INSULIN GLARGINE UD 100 UNITS/ML SYR SUBCUT SCH (22:43)
[2019-01-13] VITALS: BP 140/70
[2019-01-13] MEDS: IPRATROPIUM/ALBUTEROL 0.5-3(2.5)MG/3ML NEB HHN SCH ×6 (00:26→20:00)
[2019-01-13] MEDS: METOCLOPRAMIDE HCL 10MG/2ML VIAL IV SCH ×4 (00:46→18:14)
[2019-01-13 04:00] VITALS: BP 161/83
[2019-01-13] MEDS: DILTIAZEM HCL 30MG TABLET PO SCH ×3 (05:44→21:38)
[2019-01-13] MEDS: BLOOD SUGAR DIAGNOSTIC STRIP TEST SCH ×4 (05:45→21:40)
[2019-01-13] MEDS: INSULIN LISPRO 100 UNITS/ML SUBCUT SCH ×4 (06:38→21:36)
[2019-01-13] MEDS: CALCIUM ACETATE 667MG CAPSULE PO SCH ×3 (06:42→18:00)
[2019-01-13 08:00] VITALS: BP 172/76
[2019-01-13 08:17] LABS: HEMATOCRIT. 31.1 % (36.0-48.0); HEMOGLOBIN. 10.2 g/dL (12.0-16.0); MEAN CORPUSCULAR HEMOGLOBIN 27.7 pg (28.0-32.0); MEAN CORPUSCULAR VOLUME 84.5 fL (81.0-99.0); MEAN PLATELET VOLUME 8.1 fl (7.4-10.4); PLATELET 273 x1000/uL (130-400); RED BLOOD CELL COUNT 3.68 mill/uL (4.2-5.4); RED CELL DISTRIBUTION WIDTH 15.8 % (11.6-14.6)
[2019-01-13] MEDS: METHYLPREDNISOLONE SOD SUCC 40 MG/ML VIAL IV SCH ×2 (08:59→18:01)
[2019-01-13] MEDS: DOCUSATE SODIUM 100MG CAPSULE PO SCH ×2 (08:59→18:00)
[2019-01-13] MEDS: FUROSEMIDE 40MG/4ML VIAL IV SCH (08:59)
[2019-01-13] MEDS: FOLIC ACID/VITAMIN B COMP W-C TABLET PO SCH (09:00)
[2019-01-13 10:21] LABS: PLATELET ESTIMATE NORMAL
[2019-01-13 12:00] VITALS: BP 181/88
[2019-01-13] MEDS: CLONIDINE 0.1MG TABLET PO PRN ×2 (13:20→18:00)
[2019-01-13 16:00] VITALS: BP 169/78
[2019-01-13 20:00] VITALS: BP 119/74
[2019-01-13] MEDS: INSULIN GLARGINE UD 100 UNITS/ML SYR SUBCUT SCH (21:36)
[2019-01-13] MEDS: ATORVASTATIN CALCIUM 20MG TABLET PO SCH (21:37)
[2019-01-14] VITALS: BP 122/80
[2019-01-14] MEDS: IPRATROPIUM/ALBUTEROL 0.5-3(2.5)MG/3ML NEB HHN SCH ×2 (00:47→04:02)
[2019-01-14] MEDS: METOCLOPRAMIDE HCL 10MG/2ML VIAL IV SCH ×2 (02:45→06:52)
[2019-01-14 04:00] VITALS: BP 145/80
[2019-01-14] MEDS: DILTIAZEM HCL 30MG TABLET PO SCH ×2 (05:53→12:54)
[2019-01-14] MEDS: BLOOD SUGAR DIAGNOSTIC STRIP TEST SCH ×2 (06:42→12:59)
[2019-01-14] MEDS: INSULIN LISPRO 100 UNITS/ML SUBCUT SCH ×2 (06:50→12:59)
[2019-01-14 08:29] VITALS: BP_SYST 139; BP_DIAS 40; BP_DIAS 79
[2019-01-14] MEDS: FOLIC ACID/VITAMIN B COMP W-C TABLET PO SCH (08:49)
[2019-01-14] MEDS: CALCIUM ACETATE 667MG CAPSULE PO SCH (08:49)
[2019-01-14] MEDS: FUROSEMIDE 40MG/4ML VIAL IV SCH (08:49)
[2019-01-14] MEDS: DOCUSATE SODIUM 100MG CAPSULE PO SCH (08:49)
[2019-01-14] MEDS: METHYLPREDNISOLONE SOD SUCC 40 MG/ML VIAL IV SCH (08:52)
[2019-01-14] MEDS ORDERED: ISOS60TA4 MT (09:56)
[2019-01-14 10:20] VITALS: BP 139/70
[2019-01-14] MEDS: CLONIDINE 0.1MG TABLET PO PRN (11:29)
[2019-01-14 11:30] VITALS: BP 175/62
[2019-01-14 13:15] VITALS: BP 171/62
== END 2019-01-14 13:20 | disposition hospice, home (50) | DRG 270 ==
LOC: ER 19:38 → 6WST 01-03 01:32 → EDBEDREQ 01-03 01:36 → EDBEDREQDT 01-03 01:36 → EDBEDREQTM 01-03 01:36 → ENRESERV 01-03 03:26 → CVICU 01-04 19:05 → 8WST 01-07 12:56
PROVIDERS: ADMIT Internal Medicine; ATTEND Internal Medicine
PROC: 0W9D00Z Drainage of Pericardial Cavity with Drainage Device, Open Approach (ICD-10-PCS; principal; 2019-01-04)
PROC: 02BN0ZX Excision of Pericardium, Open Approach, Diagnostic (ICD-10-PCS; 2019-01-04)
PROC: B24BZZ4 Ultrasonography of Heart with Aorta, Transesophageal (ICD-10-PCS; 2019-01-04)
PROC: 30233N1 Transfusion of Nonautologous Red Blood Cells into Peripheral Vein, Percutaneous Approach (ICD-10-PCS; 2019-01-04)
PROC: 5A09357 Assistance with Respiratory Ventilation, Less than 24 Consecutive Hours, Continuous Positive Airway Pressure (ICD-10-PCS; 2019-01-11)
DX: I31.4 Cardiac tamponade (principal); N17.0 Acute kidney failure with tubular necrosis; J96.01 Acute respiratory failure with hypoxia; N18.5 Chronic kidney disease, stage 5; E44.1 Mild protein-calorie malnutrition; E87.2 Acidosis; I13.2 Hypertensive heart and chronic kidney disease with heart failure and with stage 5 chronic kidney disease, or end stage renal disease; K56.7 Ileus, unspecified; I50.30 Unspecified diastolic (congestive) heart failure; Z66 Do not resuscitate; I31.3 Pericardial effusion (noninflammatory); I48.0 Paroxysmal atrial fibrillation; D63.1 Anemia in chronic kidney disease; E78.5 Hyperlipidemia, unspecified; E83.39 Other disorders of phosphorus metabolism; E87.5 Hyperkalemia; E11.22 Type 2 diabetes mellitus with diabetic chronic kidney disease; R33.9 Retention of urine, unspecified; T17.990A Other foreign object in respiratory tract, part unspecified in causing asphyxiation, initial encounter; X58.XXXA Exposure to other specified factors, initial encounter; I25.10 Atherosclerotic heart disease of native coronary artery without angina pectoris; I49.3 Ventricular premature depolarization; Z79.899 Other long term (current) drug therapy; Z87.891 Personal history of nicotine dependence; Z88.6 Allergy status to analgesic agent; Z88.0 Allergy status to penicillin; Z88.8 Allergy status to other drugs, medicaments and biological substances; Z79.4 Long term (current) use of insulin; Y93.89 Activity, other specified; Y92.89 Other specified places as the place of occurrence of the external cause; Y99.8 Other external cause status; Z68.28 Body mass index [BMI] 28.0-28.9, adult
CPT/HCPCS: 36415; 36600; 71045; 71250; 74018; 76604; 80048; 81003; 82375; 82805; 82962; 83615; 83735; 83880; 84100; 84132; 84443; 84484; 85027; 86038; 86850; 86900; 86920; 87070; 87075; 87116; 88108; 88305; 88312; 92610; 93005; 93306; 94640; 94660; 94667; 97162; 97166; 97530; 97535; 99285; C1893; J0171; J0330; J1170; J1650; J1815; J1940; J2405; J2765; J2920; J3010; J3370; J3475; J3490; J7030; J7042; J7060; J7608; J7620; L3908; P9016; P9047